=== PATIENT | male | born 1995 | race Caucasian/White ===

== ENCOUNTER 2019-01-11 08:50 | Day surgery (SDC) | payer MEDICAID ==
[~2019-01-11] VITALS: Ht 165.1 cm; Wt 99.8 kg
[2019-01-11] MEDS ORDERED: fentaNYL 0.05 MG/ML VIAL ONE (10:39)
[2019-01-11] MEDS ORDERED: MIDAZOLAM 2 MG/2 ML VIAL ONE (10:40)
[2019-01-11] MEDS ORDERED: LIDOCAINE 2% 100 MG/5 ML UJET TP ONE (10:40)
[2019-01-11] MEDS ORDERED: MIDAZOLAM 2 MG/2 ML VIAL IVP ONE (11:15)
[2019-01-11] MEDS ORDERED: fentaNYL 0.05 MG/ML VIAL IVP ONE (11:15)
== END 2019-01-11 11:59 | disposition home or self-care (01) ==
LOC: MOR 08:50 → MMU 08:50 → MOR 11:59
PROVIDERS: ATTEND Internal Medicine Gastroenterology
DX: K29.70 Gastritis, unspecified, without bleeding (principal); B96.81 Helicobacter pylori [H. pylori] as the cause of diseases classified elsewhere; K64.8 Other hemorrhoids; E66.9 Obesity, unspecified; F17.210 Nicotine dependence, cigarettes, uncomplicated; Z68.36 Body mass index [BMI] 36.0-36.9, adult; Z72.89 Other problems related to lifestyle; Z86.61 Personal history of infections of the central nervous system
CPT/HCPCS: 36415; 43239; 45378; 86677; J2250; J3010